=== PATIENT | female | born 1955 | race Caucasian/White ===

== ENCOUNTER 2022-06-29 22:33 | Emergency (ER) | payer MEDICARE, MEDICAID ==
[~2022-06-29] VITALS: Ht 167.6 cm; Wt 165.1 kg
[~2022-06-29 22:33] MED LIST: ABILIFY; ACTOS; FLEXERIL10 MG PO; HYDR25T PO; MACROBID100 M1 PO; METFORMIN; METFORMIN1000 MG PO; MOTRIN800 MG PO; NAPROSYN500 MG PO; NORCO 325 MG-101 TAB PO; POTASSIUM; POTASSIUM1 PDS PO; ZOLOFT; ZOLOFT100 MG PO
[2022-06-29 22:42] LABS: HEMATOCRIT 32.8 % (37.0-47.0); MEAN CELL VOLUME 93.7 fl (81.0-99.0); MEAN CORPUSCULAR HGB CONC 27.7 g/dl (33.0-37.0); MEAN PLATELET VOLUME 9.3 fl (9.6-12.3); NUCLEATED RED BLOOD CELL 0.3 10*3/uL (0.0-0.0); NUCLEATED RED BLOOD CELL 2.9 % (0.0-0.0); PLATELET COUNT AUTOMATED 479 10*3/uL (130-400); RED CELL DISTRI WIDTH 15.8 % (0-14.5); WHITE BLOOD COUNT 11.1 10*3/uL (4.8-10.8)
[2022-06-29 22:48] LABS: MANUAL DIFF REFLEX YES
[2022-06-29 22:57] LABS: ACT PARTIAL THROMBO TIME 30.5 SECONDS (20.0-32.1); INTERNATIONAL NORM RATIO 1.1 (2.0-3.5)
[2022-06-29 23:03] LABS: ALKALINE PHOSPHATASE 196 U/L (46-116); BUN 10 mg/dl (9-23); CHLORIDE 100 mmol/L (98-107); CREATININE 0.94 mg/dL (0.55-1.02); POTASSIUM 4.1 mmol/L (3.4-5.1); SGPT/ALT 18 U/L (10-49); TOTAL PROTEIN 6.1 gm/dL (6.0-8.0)
[2022-06-29 23:07] LABS: ATYPICAL LYMPHS 1 % (0-0); BURR CELLS FEW; PLATELET SUFFICIENCY HIGH (NORMAL); POLYCHROMASIA SLIGHT; TOTAL CELLS COUNTED 100 #CELLS
== END 2022-06-30 02:03 ==
LOC: ED 22:33
PROVIDERS: Internal Medicine
DX: I46.9 Cardiac arrest, cause unspecified (principal); Z79.899 Other long term (current) drug therapy; Z88.1 Allergy status to other antibiotic agents